=== PATIENT | female | born 1935 | race Caucasian/White ===

== ENCOUNTER 2017-08-17 11:36 | Observation (INO) | payer MEDICARE, OTHER ==
[2017-08-17] MEDS ORDERED: Ondansetron 4 MG/2 ML SDV IVPUSH ONE (11:42)
[2017-08-17] MEDS ORDERED: Sodium Chloride 0.9% 1,000 ML IV ONE (11:42)
[2017-08-17] MEDS ORDERED: GI Cocktail Oral Solution 30 ML PO ONE (13:30)
[2017-08-17] MEDS ORDERED: Pantoprazole 40 MG Vial IVPUSH ONE (13:30)
[2017-08-17] MEDS: Sodium Chloride 0.9% 10 ML Syringe FLUSH PRN (13:42)
--- NOTE | 2017-08-17 14:05 | EDM.PDOC ---
ED HPI GENERAL MEDICAL PROBLEM - General Chief Complaint: Abdominal Pain Stated Complaint: N/V, Abd pain Time Seen by Provider: 08/17/17 11:40 Source of Information: Reports: Patient History Limitations: Reports: No Limitations - History of Present Illness INITIAL COMMENTS - FREE TEXT/NARRATIVE: Patient comes to ER complaining of upper abdominal burning/discomfort ( centrally and bilaterally) as well as dry heaves. Present since later last evening. No fevers/chills. No bowel changes. Had normal BM earlier today. Denies issues with constipation. No recent other changes in health/medications. Pain does not radiate. Pain waxes and wanes in intensity. Does not appear to change with eating/drinking/positional changes per patient. No history of similar pain. Denies history of gastroparesis. Reports poor appetite. Tums made no difference. Abdominal Pain Score (Numeric/FACES): 10 - Related Data Allergies Allergy/AdvReac Type Severity Reaction Status Date / Time doxycycline Allergy Cannot Verified 08/17/17 11:37 Remember ketorolac tromethamine Allergy Chills Verified 08/17/17 11:37 [From Toradol] lisinopril Allergy Cough Verified 08/17/17 11:37 azithromycin [From Zithromax] AdvReac Lightheaded Verified 08/17/17 11:37 ness Past Medical History HEENT History: Reports: Macular Degeneration Cardiovascular History: Reports: Afib, Blood Clots/VTE/DVT, Heart Failure, Hypertension, Pulmonary Hypertension Genitourinary History: Reports: Renal Disease, Other (See Below) Other Genitourinary History: stage 4 kidney failure Musculoskeletal History: Reports: Arthritis Endocrine/Metabolic History: Reports: Diabetes, Type II, Hypothyroidism, IDDM, Multinodular Thyroid Hematologic History: Reports: Anemia, B12 Deficiency Other Oncologic History: Monoclonal Gammopathy - Infectious Disease History Infectious Disease History: Reports: Chicken Pox, Influenza, Measles, Shingles - Past Surgical History GI Surgical History: Reports: Bariatric Procedure, Cholecystectomy, Hernia Repair/Other Endocrine Surgical History: Reports: Other (See Below) Musculoskeletal Surgical History: Reports: Knee Replacement Social & Family History - Family History Family Medical History: Noncontributory - Tobacco Use Smoking Status *Q: Never Smoker - Caffeine Use Caffeine Use: Reports: Tea - Alcohol Use Alcohol Use History: No - Recreational Drug Use Recreational Drug Use: No Drug Use in Last 12 Months: No ED ROS GENERAL - Review of Systems Review Of Systems: See Below Constitutional: Reports: Decreased Appetite. Denies: Fever, Chills, Malaise, Weakness, Fatigue, Night Sweats, Diaphoresis, Weight Loss, Weight Gain HEENT: Reports: No Symptoms Respiratory: Reports: No Symptoms Cardiovascular: Reports: No Symptoms GI/Abdominal: Reports: Abdominal Pain, Decreased Appetite, Nausea, Vomiting. Denies: Black Stool, Bloody Stool, Constipation, Diarrhea, Difficulty Swallowing , Distension, Hematemesis, Hematochezia : Reports: No Symptoms Musculoskeletal: Reports: No Symptoms (no acute changes) Skin: Reports: No Symptoms Neurological: Reports: No Symptoms. Denies: Headache Psychiatric: Reports: No Symptoms Hematologic/Lymphatic: Reports: No Symptoms ED EXAM, GI/ABD - Physical Exam Exam: See Below Exam Limited By: No Limitations General Appearance: Alert, WD/WN, No Apparent Distress (says pain is a "10" out of 10) Eyes: Bilateral: Normal Appearance, EOMI Ears: Normal External Exam, Normal Canal Nose: No: Nasal Deformity, Nasal Swelling, Nasal Drainage Throat/Mouth: Normal Lips, Normal Voice, No Airway Compromise Head: Atraumatic, Normocephalic Neck: Normal Inspection, Supple, Non-Tender, Full Range of Motion. No: Lymphadenopathy (L), Lymphadenopathy (R) Respiratory/Chest: No Respiratory Distress, Lungs Clear, Normal Breath Sounds, No Accessory Muscle Use, Chest Non-Tender Cardiovascular: Normal Peripheral Pulses, No Murmur, Irregularly Irregular GI/Abdominal Exam: Soft, Tender (upper 1/2 abdomen), Abnormal Bowel Sounds ( decreased throughout). No: Guarding, Rigid, Rebound, Hepatomegaly, Splenomegaly (Female) Exam: Deferred Rectal (Female) Exam: Deferred Back Exam: Normal Inspection. No: CVA Tenderness (L), CVA Tenderness (R), Muscle Spasm, Paraspinal Tenderness, Vertebral Tenderness Extremities: Normal Capillary Refill, Pedal Edema (moderate, bilateral), Leg Pain (right knee discomfort, patient says she needs a joint replacement). No: Victoriano's Sign, Increased Warmth Neurological: Alert, Oriented, Normal Cognition, Other (Neuromuscular tone equal /appropriate bilaterally) Psychiatric: Normal Affect, Normal Mood Skin Exam: Warm, Dry, Intact, Normal Color Course - Vital Signs Last Recorded V/S: Last Vital Signs Temp 37.1 C 08/17/17 11:37 Pulse 64 08/17/17 11:37 Resp 18 08/17/17 11:37 BP 165/82 H 08/17/17 11:37 Pulse Ox 99 08/17/17 11:37 - Orders/Labs/Meds Orders: Active Orders 24 hr Category Date Time Status Abdomen 2V AP Flat Upright [CR] Stat Exams 08/17/17 11:42 Ordered UA W/MICROSCOPIC [URIN] Stat Lab 08/17/17 11:41 Ordered Sodium Chloride 0.9% [Normal Saline] 1,000 ml Med 08/17/17 11:42 Active IV .BOLUS Sodium Chloride 0.9% [Saline Flush] Med 08/17/17 11:41 Active 10 ml FLUSH ASDIRECTED PRN Saline Lock Insert [OM.PC] Stat Oth 08/17/17 11:41 Ordered Medication Orders Sodium Chloride (Normal Saline) 1,000 mls @ 250 mls/hr IV .BOLUS ONE Stop: 08/17/17 15:41 Last Admin: 08/17/17 12:44 Dose: 250 mls/hr Sodium Chloride (Saline Flush) 10 ml FLUSH ASDIRECTED PRN PRN Reason: Keep Vein Open Last Admin: 08/17/17 13:42 Dose: 10 ml Labs: Laboratory Tests 08/17/17 08/17/17 08/17/17 Range/Units 11:45 12:28 12:28 WBC 6.5 (4.0-10.2) K/uL RBC 3.54 L (3.77-5.09) M/uL Hgb 11.8 D (11.7-15.5) g/dL Hct 35.8 (34.0-46.0) % MCV 101.1 H D (84.0-98.0) fL MCH 33.3 (28.2-33.3) pg MCHC 33.0 (31.7-36.0) g/dL RDW 13.8 (11.2-14.1) % Plt Count 201 (150-350) K/uL Neut % (Auto) 76.4 (45.0-80.0) % Lymph % (Auto) 12.3 (10.0-50.0) % [place] % (Auto) 10.5 (2.0-14.0) % Eos % (Auto) 0.3 (0.0-5.0) % Baso % (Auto) 0.5 (0.0-2.0) % Neut # (Auto) 4.96 (1.40-7.00) K/uL Lymph # (Auto) 0.80 (0.50-3.50) K/uL [place] # (Auto) 0.68 (0.00-1.00) K/uL Eos # (Auto) 0.02 (0.00-0.50) K/uL Baso # (Auto) 0.03 (0.00-0.20) K/uL PT (9.8-11.7) SEC INR Sodium 139 (136-145) mmol/L Potassium 4.2 (3.5-5.1) mmol/L Chloride 97 L (98-107) mmol/L Carbon Dioxide 33.0 H (21.0-32.0) mmol/L BUN 22 H D (7-18) mg/dL Creatinine 1.86 H (0.51-1.17) mg/dL Est Cr Clr Drug Dosing 19.08 mL/min Estimated GFR (MDRD) 26 mL/min Glucose 106 (74-106) mg/dL Calcium 8.7 (8.5-10.1) mg/dL Total Bilirubin 0.7 (0.2-1.0) mg/dL AST 28 (15-37) U/L ALT 9 L (12-78) U/L Alkaline Phosphatase 194 H (46-116) IU/L Total Protein 7.2 (6.4-8.2) g/dL Albumin 3.4 (3.4-5.0) g/dL Amylase (25-115) U/L Lipase (73-393) U/L Specimen Type Urinblad Urine Color Dark yellow Urine Appearance Clear Urine pH 8.5 (5.0-9.0) Ur Specific [place] 1.015 (1.005-1.030) Urine Protein 100 H (NEGATIVE) mg/dL Urine Glucose (UA) Negative (NEGATIVE) mg/dL Urine Ketones 15 H (NEGATIVE) mg/dL Urine Occult Blood Negative (NEGATIVE) Urine Nitrite Negative (NEGATIVE) Urine Bilirubin Negative (NEGATIVE) Urine Urobilinogen 1.0 (0.2-1.0) E.U./dL Ur Leukocyte Esterase Negative (NEGATIVE) Urine RBC 0-5 /HPF Urine WBC 5-10 H /HPF Ur Epithelial Cells Moderate H /LPF Urine Bacteria Moderate H (NONE TO FEW) /HPF 08/17/17 08/17/17 Range/Units 12:28 12:28 WBC (4.0-10.2) K/uL RBC (3.77-5.09) M/uL Hgb (11.7-15.5) g/dL Hct (34.0-46.0) % MCV (84.0-98.0) fL MCH (28.2-33.3) pg MCHC (31.7-36.0) g/dL RDW (11.2-14.1) % Plt Count (150-350) K/uL Neut % (Auto) (45.0-80.0) % Lymph % (Auto) (10.0-50.0) % [place] % (Auto) (2.0-14.0) % Eos % (Auto) (0.0-5.0) % Baso % (Auto) (0.0-2.0) % Neut # (Auto) (1.40-7.00) K/uL Lymph # (Auto) (0.50-3.50) K/uL [place] # (Auto) (0.00-1.00) K/uL Eos # (Auto) (0.00-0.50) K/uL Baso # (Auto) (0.00-0.20) K/uL PT 17.4 H D (9.8-11.7) SEC INR 1.6 Sodium (136-145) mmol/L Potassium (3.5-5.1) mmol/L Chloride (98-107) mmol/L Carbon Dioxide (21.0-32.0) mmol/L BUN (7-18) mg/dL Creatinine (0.51-1.17) mg/dL Est Cr Clr Drug Dosing mL/min Estimated GFR (MDRD) mL/min Glucose (74-106) mg/dL Calcium (8.5-10.1) mg/dL Total Bilirubin (0.2-1.0) mg/dL AST (15-37) U/L ALT (12-78) U/L Alkaline Phosphatase (46-116) IU/L Total Protein (6.4-8.2) g/dL Albumin (3.4-5.0) g/dL Amylase 46 (25-115) U/L Lipase 52 L (73-393) U/L Specimen Type Urine Color Urine Appearance Urine pH (5.0-9.0) Ur Specific [place]ore (1.005-1.030) Urine Protein (NEGATIVE) mg/dL Urine Glucose (UA) (NEGATIVE) mg/dL Urine Ketones (NEGATIVE) mg/dL Urine Occult Blood (NEGATIVE) Urine Nitrite (NEGATIVE) Urine Bilirubin (NEGATIVE) Urine Urobilinogen (0.2-1.0) E.U./dL Ur Leukocyte Esterase (NEGATIVE) Urine RBC /HPF Urine WBC /HPF Ur Epithelial Cells /LPF Urine Bacteria (NONE TO FEW) /HPF Meds: Medications Generic Name Dose Route Start Last Admin Trade Name Freq PRN Reason Stop Dose Admin Sodium Chloride 1,000 mls @ 250 mls/hr 08/17/17 11:42 08/17/17 12:44 Normal Saline IV 08/17/17 15:41 250 mls/hr .BOLUS ONE Administration Sodium Chloride 10 ml 08/17/17 11:41 08/17/17 13:42 Saline Flush FLUSH 10 ml ASDIRECTED PRN Administration Keep Vein Open Discontinued Medications Generic Name Dose Route Start Last Admin Trade Name Freq PRN Reason Stop Dose Admin Al Hydroxide/Mg Hydroxide 30 ml 08/17/17 13:30 08/17/17 13:42 Gi Cocktail PO 08/17/17 13:31 30 ml ONETIME ONE Administration Ondansetron HCl 4 mg 08/17/17 11:42 08/17/17 12:44 Zofran IVPUSH 08/17/17 11:43 4 mg ONETIME ONE Administration Pantoprazole Sodium 40 mg 08/17/17 13:30 08/17/17 13:42 Protonix Iv IVPUSH 08/17/17 13:31 40 mg ONETIME ONE Administration - Radiology Interpretation Free Text/Narrative:: Abdominal flat/upright overall is unremarkable except for a few small air/fluid levels. - Re-Assessments/Exams Free Text/Narrative Re-Assessment/Exam: Patient's complaint improved with GI cocktail. Zofran ODT and Protonix IV given. IV NS given. Cannot exclude possibility of gastroparesis given diabetes history. Patient denies having gastroparesis in past however. Differential includes viral gastroenteritis. Has had gallbladder removed. Normal WBC. UA had small amount of WBCs but also showed significant number of epithelial cells/ bacteria suggesting dirty urine specimen. She denies having UTI complaints. Small amount of ketones noted in UA. Normal amylase/lipase. BUN 22, Cr 1.86 Last had dialysis yesterday. Normal Na and K. Plan at this time is to admit observation. Will observe for further changes. Will restrict patient to icechips/water for now and continue maintenance fluids once single liter of IV NS is infused. If viral in nature, anticipate patient will be able to be discharged tomorrow or at latest on Sunday once she is again able to take PO food/fluids. Departure - Departure Time of Disposition: 14:28 Disposition: Refer to Observation Condition: Good Clinical Impression: Abdominal pain Qualifiers: Abdominal location: upper abdomen, unspecified Qualified Code(s): R10.10 - Upper abdominal pain, unspecified Vomiting Qualifiers: Vomiting type: unspecified Vomiting Intractability: non-intractable Nausea presence: with nausea Qualified Code(s): R11.2 - Nausea with vomiting, unspecified - Discharge Information Referrals: Nahomi Osman PA [Primary Care Provider] - Forms: ED Department Discharge - Problem List & Annotations (1) Abdominal pain SNOMED Code(s): 27257833 Code(s): R10.9 - UNSPECIFIED ABDOMINAL PAIN Status: Acute Priority: High Current Visit: Yes Onset Date: 08/16/17 Annotation/Comment:: Burning pain , improved with GI cocktail. Suspect possible viral gastroenteritis. Cannot exclude other potential causes however. Qualifiers: Abdominal location: upper abdomen, unspecified Qualified Code(s): R10.10 - Upper abdominal pain, unspecified (2) Vomiting SNOMED Code(s): 456065309 Code(s): R11.10 - VOMITING, UNSPECIFIED Status: Acute Priority: High Current Visit: Yes Annotation/Comment:: Dry heaves as described by patient. No significant episodes observed in ER Qualifiers: Vomiting type: unspecified Vomiting Intractability: non-intractable Nausea presence: with nausea Qualified Code(s): R11.2 - Nausea with vomiting, unspecified - Problem List Review Problem List Initiated/Reviewed/Updated: Yes - My Orders Last 24 Hours: My Active Orders 08/17/17 11:41 UA W/MICROSCOPIC [URIN] Stat Sodium Chloride 0.9% [Saline Flush] 10 ml FLUSH ASDIRECTED PRN Saline Lock Insert [OM.PC] Stat 08/17/17 11:42 Abdomen 2V AP Flat Upright [CR] Stat Sodium Chloride 0.9% [Normal Saline] 1,000 ml IV .BOLUS - Assessment/Plan Admission H&P: Please use this note as an admission H&P Last 24 Hours: My Active Orders 08/17/17 11:41 UA W/MICROSCOPIC [URIN] Stat Sodium Chloride 0.9% [Saline Flush] 10 ml FLUSH ASDIRECTED PRN Saline Lock Insert [OM.PC] Stat 08/17/17 11:42 Abdomen 2V AP Flat Upright [CR] Stat Sodium Chloride 0.9% [Normal Saline] 1,000 ml IV .BOLUS Assessment:: as above Plan: as above
[2017-08-17] MEDS ORDERED: Morphine 2 MG/ML Syringe IVPUSH ONE (14:08)
[2017-08-17] MEDS ORDERED: Bisacodyl 10 MG Supp RECTAL PRN (16:13)
[2017-08-17] MEDS ORDERED: Acetaminophen 325 MG Tab PO PRN (16:13)
[2017-08-17] MEDS ORDERED: Acetaminophen/HYDROcodone 325-5 MG Tab PO PRN (16:17)
[2017-08-17] MEDS ORDERED: traMADol 50 MG Tab PO PRN (16:17)
[2017-08-17] MEDS ORDERED: Warfarin 5 MG Tab PO ONE (16:19)
[2017-08-17] MEDS ORDERED: Morphine 2 MG/ML Syringe IVPUSH PRN (16:29)
[2017-08-17] MEDS ORDERED: Sodium Chloride 0.9% 1,000 ML IV SCH (16:30)
[2017-08-17] MEDS: Bumetanide 1 MG Tab PO SCH (17:19)
[2017-08-17] MEDS: Calcium Carbonate 500 MG Tab.Chew PO PRN (20:27)
[2017-08-17] MEDS: Carbidopa/Levodopa 25-100 MG Tab PO SCH (20:27)
[2017-08-17] MEDS: Ondansetron 4 MG/2 ML SDV IVPUSH PRN (20:30)
[2017-08-18] MEDS ORDERED: Levothyroxine 25 MCG Tab PO SCH (07:30)
[2017-08-18] MEDS ORDERED: Levothyroxine 100 MCG Tab PO SCH (07:30)
[2017-08-18] MEDS: Bumetanide 1 MG Tab PO SCH ×2 (08:31→12:05)
[2017-08-18] MEDS: Sodium Chloride 0.9% 10 ML Syringe FLUSH PRN (08:33)
[2017-08-18] MEDS: Pantoprazole 40 MG Vial IVPUSH SCH (08:33)
[2017-08-18] MEDS: Warfarin 2.5 MG Tab PO SCH (08:33)
[2017-08-18] MEDS: Ondansetron 4 MG/2 ML SDV IVPUSH PRN (12:09)
[2017-08-18] MEDS: Calcium Carbonate 500 MG Tab.Chew PO PRN (12:09)
[2017-08-18] MEDS ORDERED: Insulin Isophane NPH, Human 100 Units/ML 3 ML Pen SUBCUT ONE (20:00)
[2017-08-18] MEDS: Carbidopa/Levodopa 25-100 MG Tab PO SCH (20:40)
--- NOTE | 2017-08-18 21:05 | PCM.PN ---
- General Info Date of Service: 08/18/17 Functional Status: Reports: Pain Controlled, Tolerating Diet - Review of Systems General: Reports: No Symptoms HEENT: Reports: No Symptoms Pulmonary: Reports: No Symptoms Cardiovascular: Reports: No Symptoms Gastrointestinal: Reports: No Symptoms Genitourinary: Reports: No Symptoms Musculoskeletal: Reports: No Symptoms Skin: Reports: No Symptoms Neurological: Reports: No Symptoms Psychiatric: Reports: No Symptoms - Patient Data Vitals - Most Recent: Last Vital Signs Temp 98.7 F 08/18/17 16:00 Pulse 59 L 08/18/17 16:00 Resp 16 08/18/17 16:00 BP 137/63 08/18/17 16:00 Pulse Ox 94 L 08/18/17 16:00 Weight - Most Recent: 145 lb 4.8 oz I&O - Last 24 Hours: Intake & Output 08/18/17 08/18/17 08/18/17 06:59 14:59 22:59 Intake Total 600 1120 1440 Output Total 400 Balance 851 028 0839 Lab Results Last 24 Hours: Laboratory Results - last 24 hr 08/18/17 08/18/17 08/18/17 Range/Units 06:34 06:35 17:03 WBC 6.5 (4.0-10.2) K/uL RBC 3.08 L (3.77-5.09) M/uL Hgb 10.3 L D (11.7-15.5) g/dL Hct 31.8 L (34.0-46.0) % MCV 103.2 H (84.0-98.0) fL MCH 33.4 H (28.2-33.3) pg MCHC 32.4 (31.7-36.0) g/dL RDW 13.7 (11.2-14.1) % Plt Count 204 (150-350) K/uL Neut % (Auto) 74.5 (45.0-80.0) % Lymph % (Auto) 14.6 (10.0-50.0) % [place] % (Auto) 9.8 (2.0-14.0) % Eos % (Auto) 0.5 (0.0-5.0) % Baso % (Auto) 0.6 (0.0-2.0) % Neut # (Auto) 4.86 (1.40-7.00) K/uL Lymph # (Auto) 0.95 (0.50-3.50) K/uL [place] # (Auto) 0.64 (0.00-1.00) K/uL Eos # (Auto) 0.03 (0.00-0.50) K/uL Baso # (Auto) 0.04 (0.00-0.20) K/uL Sodium 139 (136-145) mmol/L Potassium 4.3 (3.5-5.1) mmol/L Chloride 101 (98-107) mmol/L Carbon Dioxide 30.0 (21.0-32.0) mmol/L BUN 26 H (7-18) mg/dL Creatinine 2.17 H (0.51-1.17) mg/dL Est Cr Clr Drug Dosing 16.35 mL/min Estimated GFR (MDRD) 22 mL/min Glucose 100 (74-106) mg/dL POC Glucose 216 H (65-110) mg/dl Calcium 8.2 L (8.5-10.1) mg/dL Total Bilirubin 0.5 (0.2-1.0) mg/dL AST 22 (15-37) U/L ALT 6 L (12-78) U/L Alkaline Phosphatase 157 H (46-116) IU/L Total Protein 5.8 L (6.4-8.2) g/dL Albumin 2.6 L (3.4-5.0) g/dL Med Orders - Current: Current Medications Acetaminophen (Tylenol) 650 mg PO Q4H PRN PRN Reason: analgesia/fever Hydrocodone Bitart/Acetaminophen ([place] 325-5 Mg) 1 tab PO Q12H PRN PRN Reason: Pain Bisacodyl (Dulcolax) 10 mg RECTAL DAILY PRN PRN Reason: Constipation Calcium Carbonate/Glycine (Tums) 500 mg PO Q4H PRN PRN Reason: Dyspepsia Last Admin: 08/18/17 12:09 Dose: 500 mg Carbidopa/Levodopa (Sinemet 25-100 Mg) 3 tab PO BEDTIME CADY Last Admin: 08/18/17 20:40 Dose: 3 tab Morphine Sulfate (Morphine) 2 mg IVPUSH Q4H PRN PRN Reason: Pain (severe 7-10) Last Admin: 06/15/18 20:30 Dose: 2 mg Ondansetron HCl (Zofran) 4 mg IVPUSH Q6H PRN PRN Reason: Nausea/Vomiting Last Admin: 08/18/17 12:09 Dose: 4 mg Pantoprazole Sodium (Protonix Iv) 40 mg IVPUSH DAILY [facility] Last Admin: 08/18/17 08:33 Dose: 40 mg Pramipexole Dihydrochloride (Mirapex) 3 mg PO BEDTIME [facility] Last Admin: 08/18/17 20:40 Dose: 3 mg Sodium Chloride (Saline Flush) 10 ml FLUSH ASDIRECTED PRN PRN Reason: Keep Vein Open Last Admin: 08/18/17 08:33 Dose: 10 ml Sodium Chloride (Saline Flush) 10 ml FLUSH Q12HR [facility] Tramadol HCl (Ultram) 50 mg PO Q6H PRN PRN Reason: Pain Warfarin Sodium (Coumadin) 1.25 mg PO MO@08 CADY Warfarin Sodium (Coumadin) 2.5 mg PO SUTUWETHFRSA@08 [facility] Last Admin: 08/18/17 08:33 Dose: 2.5 mg Discontinued Medications Al Hydroxide/Mg Hydroxide (Gi Cocktail) 30 ml PO ONETIME ONE Stop: 08/17/17 13:31 Last Admin: 08/17/17 13:42 Dose: 30 ml Bumetanide (Bumex) 1 mg PO TID [facility] Last Admin: 08/18/17 12:05 Dose: 1 mg Sodium Chloride (Normal Saline) 1,000 mls @ 250 mls/hr IV .BOLUS ONE Stop: 08/17/17 15:41 Last Admin: 08/17/17 12:44 Dose: 250 mls/hr Sodium Chloride (Normal Saline) 1,000 mls @ 50 mls/hr IV ASDIRECTED [facility] Stop: 08/18/17 13:30 Last Admin: 08/17/17 17:12 Dose: 50 mls/hr Insulin Human NPH (Humulin N) 8 unit SUBCUT ONETIME ONE Stop: 08/18/17 20:01 Last Admin: 08/18/17 20:40 Dose: 8 units Levothyroxine Sodium (Synthroid) 100 mcg PO ACBREAKFAST [facility] Last Admin: 08/18/17 08:32 Dose: 100 mcg Levothyroxine Sodium (Levothyroxine) 25 mcg PO ACBREAKFAST [facility] Last Admin: 08/18/17 08:31 Dose: 25 mcg Morphine Sulfate (Morphine) 2 mg IVPUSH ONETIME ONE Stop: 08/17/17 14:09 Last Admin: 08/17/17 15:09 Dose: 2 mg Ondansetron HCl (Zofran) 4 mg IVPUSH ONETIME ONE Stop: 08/17/17 11:43 Last Admin: 08/17/17 12:44 Dose: 4 mg Pantoprazole Sodium (Protonix Iv) 40 mg IVPUSH ONETIME ONE Stop: 08/17/17 13:31 Last Admin: 08/17/17 13:42 Dose: 40 mg Warfarin Sodium (Coumadin) 5 mg PO ONETIME ONE Stop: 08/17/17 16:20 Last Admin: 08/17/17 17:18 Dose: 5 mg - Exam Quality Assessment: DVT Prophylaxis General: Alert, Cooperative, No Acute Distress HEENT: Mucous Membr. Moist/[place], Other (decreased visual acuity unchanged) Neck: Trachea Midline, No JVD Lungs: Clear to Auscultation, Normal Respiratory Effort Cardiovascular: Irregular Rhythm GI/Abdominal Exam: Normal Bowel Sounds, Soft, Non-Tender, No Distention (Female) Exam: Deferred Back Exam: Other (kyphosis) Extremities: No Pedal Edema, Other (dialysis fistulas bilateral upper extremities) Skin: Warm, Dry, Intact Neurological: No New Focal Deficit Psy/Mental Status: Alert, Normal Affect, Normal Mood - Problem List & Annotations (1) Dialysis patient SNOMED Code(s): 584244805 Code(s): Z99.2 - DEPENDENCE ON RENAL DIALYSIS Status: Acute Priority: Medium Current Visit: Yes (2) Abdominal pain SNOMED Code(s): 81987820 Code(s): R10.9 - UNSPECIFIED ABDOMINAL PAIN Status: Acute Priority: High Current Visit: Yes Onset Date: 08/16/17 Qualifiers: Abdominal location: upper abdomen, unspecified Qualified Code(s): R10.10 - Upper abdominal pain, unspecified Annotation/Comment:: Burning pain, improved with GI cocktail. Suspect possible viral gastroenteritis. Cannot exclude other potential causes however. (3) Subtherapeutic international normalized ratio (INR) SNOMED Code(s): 531251779, 637913637 Code(s): R79.1 - ABNORMAL COAGULATION PROFILE Status: Acute Current Visit : Yes (4) Anemia SNOMED Code(s): 335262438 Code(s): D64.9 - ANEMIA, UNSPECIFIED Status: Chronic Current Visit: No (5) COPD, Mild chronic obstructive pulmonary disease SNOMED Code(s): 144565279 Code(s): J44.9 - CHRONIC OBSTRUCTIVE PULMONARY DISEASE, UNSPECIFIED Status : Chronic Current Visit: No (6) Comfort measures only status SNOMED Code(s): 09414426878258 Code(s): Z51.5 - ENCOUNTER FOR PALLIATIVE CARE Status: Chronic Priority: Medium Current Visit: No (7) Diabetes mellitus type 2 SNOMED Code(s): 30439323 Code(s): E11.9 - TYPE 2 DIABETES MELLITUS WITHOUT COMPLICATIONS Status: Chronic Current Visit: No Annotation/Comment:: Novalin N 6 units BID, accu checks BID. Hold glyberide and Metformin. Lactic acid level in am. (8) HTN (hypertension) SNOMED Code(s): 92532245 Code(s): I10 - ESSENTIAL (PRIMARY) HYPERTENSION Status: Chronic Priority : Medium Current Visit: No Qualifiers: Hypertension type: essential hypertension Qualified Code(s): I10 - Essential (primary) hypertension (9) Renal failure, chronic SNOMED Code(s): 81999811, 621560025 Code(s): N18.9 - CHRONIC KIDNEY DISEASE, UNSPECIFIED Status: Chronic Priority: High Current Visit: No Qualifiers: Chronic kidney disease stage: stage 4 (severe) Qualified Code(s): N18.4 - Chronic kidney disease, stage 4 (severe) (10) Vitamin B 12 deficiency SNOMED Code(s): 503891136 Code(s): E53.8 - DEFICIENCY OF OTHER SPECIFIED B GROUP VITAMINS Status: Chronic Current Visit: No (11) Hypercoagulability state SNOMED Code(s): 95396836 Code(s): D68.59 - OTHER PRIMARY THROMBOPHILIA Status: Inactive Current Visit: No Onset Date: 12/30/13 Annotation/Comment:: INR greater than 7. Coumadin held. Repeat labs in am. (12) Gastritis, acute SNOMED Code(s): 45816778 Code(s): K29.00 - ACUTE GASTRITIS WITHOUT BLEEDING Status: Acute Priority : High Current Visit: Yes Qualifiers: Gastritis type: superficial Gastritis bleeding: without bleeding Qualified Code(s): K29.00 - Acute gastritis without bleeding - Problem List Review Problem List Initiated/Reviewed/Updated: Yes - My Orders Last 24 Hours: My Active Orders 08/19/17 05:11 AMYLASE [CHEM] Routine CBC WITH AUTO DIFF [HEME] Routine CMP [COMPREHENSIVE METABOLIC PN,CMP] [CHEM] Routine CRP [C-REACTIVE PROTEIN] [CHEM] Routine INR,PT,PROTHROMBIN TIME [COAG] Routine LIPASE [CHEM] Routine 08/19/17 08:00 Sodium Chloride 0.9% [Saline Flush] 10 ml FLUSH Q12HR 08/19/17 Breakfast [place] [employer] Diet [DIET] - Plan Plan:: 08/18/17 Marjan Blake MD Feels much better today. No abdomenal pain. Tolerating oral intake. Recheck labs in AM. Discussed insulin and diabetes mellitus.
[2017-08-18] MEDS ORDERED: Saliva Substitute Oral Spray 120 ML Bottle MUCMEM PRN (22:35)
[2017-08-19] MEDS ORDERED: Temazepam 15 MG Cap PO PRN (02:10)
[2017-08-19] MEDS: Pantoprazole 40 MG Vial IVPUSH SCH (07:39)
[2017-08-19] MEDS: Warfarin 2.5 MG Tab PO SCH (07:39)
[2017-08-19] MEDS ORDERED: Sodium Chloride 0.9% 10 ML Syringe FLUSH SCH (08:00)
[2017-08-19 12:43] VITALS: BP 120/47
--- NOTE | 2017-08-19 16:22 | PCM.PN ---
- General Info Date of Service: 08/19/17 Functional Status: Reports: Pain Controlled, Tolerating Diet, Ambulating - Review of Systems General: Reports: Weakness HEENT: Reports: Other (decreased visual acuity but unchanged) Pulmonary: Reports: No Symptoms Cardiovascular: Reports: No Symptoms Gastrointestinal: Reports: No Symptoms Genitourinary: Reports: No Symptoms Musculoskeletal: Reports: No Symptoms Skin: Reports: Bruising Neurological: Reports: Weakness Psychiatric: Reports: No Symptoms - Patient Data Vitals - Most Recent: Last Vital Signs Temp 98.6 F 08/19/17 12:00 Pulse 62 08/19/17 12:00 Resp 16 08/19/17 12:00 BP 120/47 L 08/19/17 12:00 Pulse Ox 95 08/19/17 12:00 Weight - Most Recent: 145 lb 4.8 oz I&O - Last 24 Hours: Intake & Output 08/19/17 08/19/17 08/19/17 06:59 14:59 22:59 Intake Total 90 1360 Output Total 100 Balance 90 1260 Lab Results Last 24 Hours: Laboratory Results - last 24 hr 08/18/17 08/18/17 08/19/17 Range/Units 17:03 19:51 06:46 WBC 5.1 (4.0-10.2) K/uL RBC 3.12 L (3.77-5.09) M/uL Hgb 10.3 L (11.7-15.5) g/dL Hct 31.7 L (34.0-46.0) % MCV 101.6 H (84.0-98.0) fL MCH 33.0 (28.2-33.3) pg MCHC 32.5 (31.7-36.0) g/dL RDW 13.8 (11.2-14.1) % Plt Count 188 (150-350) K/uL Neut % (Auto) 67.1 (45.0-80.0) % Lymph % (Auto) 18.0 (10.0-50.0) % [place] % (Auto) 13.3 (2.0-14.0) % Eos % (Auto) 1.2 (0.0-5.0) % Baso % (Auto) 0.4 (0.0-2.0) % Neut # (Auto) 3.43 (1.40-7.00) K/uL Lymph # (Auto) 0.92 (0.50-3.50) K/uL [place] # (Auto) 0.68 (0.00-1.00) K/uL Eos # (Auto) 0.06 (0.00-0.50) K/uL Baso # (Auto) 0.02 (0.00-0.20) K/uL PT (9.8-11.7) SEC INR Sodium (136-145) mmol/L Potassium (3.5-5.1) mmol/L Chloride (98-107) mmol/L Carbon Dioxide (21.0-32.0) mmol/L BUN (7-18) mg/dL Creatinine (0.51-1.17) mg/dL Est Cr Clr Drug Dosing mL/min Estimated GFR (MDRD) mL/min Glucose (74-106) mg/dL POC Glucose 216 H 254 H* (65-110) mg/dl Calcium (8.5-10.1) mg/dL Total Bilirubin (0.2-1.0) mg/dL AST (15-37) U/L ALT (12-78) U/L Alkaline Phosphatase (46-116) IU/L C-Reactive Protein (<=0.9) mg/dL Total Protein (6.4-8.2) g/dL Albumin (3.4-5.0) g/dL Amylase (25-115) U/L Lipase (73-393) U/L 08/19/17 08/19/17 08/19/17 Range/Units 06:46 06:46 07:30 WBC (4.0-10.2) K/uL RBC (3.77-5.09) M/uL Hgb (11.7-15.5) g/dL Hct (34.0-46.0) % MCV (84.0-98.0) fL MCH (28.2-33.3) pg MCHC (31.7-36.0) g/dL RDW (11.2-14.1) % Plt Count (150-350) K/uL Neut % (Auto) (45.0-80.0) % Lymph % (Auto) (10.0-50.0) % [place] % (Auto) (2.0-14.0) % Eos % (Auto) (0.0-5.0) % Baso % (Auto) (0.0-2.0) % Neut # (Auto) (1.40-7.00) K/uL Lymph # (Auto) (0.50-3.50) K/uL [place] # (Auto) (0.00-1.00) K/uL Eos # (Auto) (0.00-0.50) K/uL Baso # (Auto) (0.00-0.20) K/uL PT 24.8 H D (9.8-11.7) SEC INR 2.3 Sodium 138 (136-145) mmol/L Potassium 3.7 (3.5-5.1) mmol/L Chloride 101 (98-107) mmol/L Carbon Dioxide 29.5 (21.0-32.0) mmol/L BUN 34 H (7-18) mg/dL Creatinine 2.65 H (0.51-1.17) mg/dL Est Cr Clr Drug Dosing 13.39 mL/min Estimated GFR (MDRD) 17 mL/min Glucose 214 H (74-106) mg/dL POC Glucose 195 H (65-110) mg/dl Calcium 8.0 L (8.5-10.1) mg/dL Total Bilirubin 0.4 (0.2-1.0) mg/dL AST 20 (15-37) U/L ALT 5 L (12-78) U/L Alkaline Phosphatase 152 H (46-116) IU/L C-Reactive Protein 1.8 H (<=0.9) mg/dL Total Protein 5.7 L (6.4-8.2) g/dL Albumin 2.7 L (3.4-5.0) g/dL Amylase 31 (25-115) U/L Lipase 85 (73-393) U/L Med Orders - Current: Current Medications Acetaminophen (Tylenol) 650 mg PO Q4H PRN PRN Reason: analgesia/fever Hydrocodone Bitart/Acetaminophen ([place] 325-5 Mg) 1 tab PO Q12H PRN PRN Reason: Pain Bisacodyl (Dulcolax) 10 mg RECTAL DAILY PRN PRN Reason: Constipation Calcium Carbonate/Glycine (Tums) 500 mg PO Q4H PRN PRN Reason: Dyspepsia Last Admin: 08/18/17 12:09 Dose: 500 mg Carbidopa/Levodopa (Sinemet 25-100 Mg) 3 tab PO BEDTIME [facility] Last Admin: 08/18/17 20:40 Dose: 3 tab Morphine Sulfate (Morphine) 2 mg IVPUSH Q4H PRN PRN Reason: Pain (severe 7-10) Last Admin: 08/17/17 20:30 Dose: 2 mg Ondansetron HCl (Zofran) 4 mg IVPUSH Q6H PRN PRN Reason: Nausea/Vomiting Last Admin: 08/18/17 12:09 Dose: 4 mg Pantoprazole Sodium (Protonix Iv) 40 mg IVPUSH DAILY [facility] Last Admin: 08/19/17 07:39 Dose: 40 mg Pramipexole Dihydrochloride (Mirapex) 3 mg PO BEDTIME [facility] Last Admin: 08/18/17 20:40 Dose: 3 mg Saliva Substitute (Jluis-Stir Oral [place]) 0 ml MUCMEM ASDIRECTED PRN PRN Reason: Dry Mouth Last Admin: 08/18/17 23:31 Dose: 1 spray Sodium Chloride (Saline Flush) 10 ml FLUSH ASDIRECTED PRN PRN Reason: Keep Vein Open Last Admin: 08/18/17 08:33 Dose: 10 ml Sodium Chloride (Saline Flush) 10 ml FLUSH Q12HR [facility] Last Admin: 08/19/17 07:39 Dose: 10 ml Temazepam (Restoril) 15 mg PO BEDTIME PRN PRN Reason: Insomnia Last Admin: 08/19/17 02:37 Dose: 15 mg Tramadol HCl (Ultram) 50 mg PO Q6H PRN PRN Reason: Pain Warfarin Sodium (Coumadin) 1.25 mg PO MO@08 [facility]Y Warfarin Sodium (Coumadin) 2.5 mg PO SUTUWETHFRSA@08 [facility] Last Admin: 08/19/17 07:39 Dose: 2.5 mg Discontinued Medications Al Hydroxide/Mg Hydroxide (Gi Cocktail) 30 ml PO ONETIME ONE Stop: 08/17/17 13:31 Last Admin: 08/17/17 13:42 Dose: 30 ml Bumetanide (Bumex) 1 mg PO TID [facility] Last Admin: 08/18/17 12:05 Dose: 1 mg Sodium Chloride (Normal Saline) 1,000 mls @ 250 mls/hr IV .BOLUS ONE Stop: 08/17/17 15:41 Last Admin: 08/17/17 12:44 Dose: 250 mls/hr Sodium Chloride (Normal Saline) 1,000 mls @ 50 mls/hr IV ASDIRECTED CADY Stop: 08/18/17 13:30 Last Admin: 08/17/17 17:12 Dose: 50 mls/hr Insulin Human NPH (Humulin N) 8 unit SUBCUT ONETIME ONE Stop: 08/18/17 20:01 Last Admin: 08/18/17 20:40 Dose: 8 units Levothyroxine Sodium (Synthroid) 100 mcg PO ACBREAKFAST [facility]Y Last Admin: 08/18/17 08:32 Dose: 100 mcg Levothyroxine Sodium (Levothyroxine) 25 mcg PO ACBREAKFAST [facility]Y Last Admin: 08/18/17 08:31 Dose: 25 mcg Morphine Sulfate (Morphine) 2 mg IVPUSH ONETIME ONE Stop: 08/17/17 14:09 Last Admin: 08/17/17 15:09 Dose: 2 mg Ondansetron HCl (Zofran) 4 mg IVPUSH ONETIME ONE Stop: 08/17/17 11:43 Last Admin: 08/17/17 12:44 Dose: 4 mg Pantoprazole Sodium (Protonix Iv) 40 mg IVPUSH ONETIME ONE Stop: 08/17/17 13:31 Last Admin: 08/17/17 13:42 Dose: 40 mg Warfarin Sodium (Coumadin) 5 mg PO ONETIME ONE Stop: 08/17/17 16:20 Last Admin: 08/17/17 17:18 Dose: 5 mg - Exam Quality Assessment: DVT Prophylaxis (on coumadin) General: Alert, Cooperative, No Acute Distress HEENT: Mucous Membr. Moist/[place] Neck: Trachea Midline, No JVD Lungs: Clear to Auscultation, Normal Respiratory Effort Cardiovascular: Irregular Rhythm GI/Abdominal Exam: Normal Bowel Sounds, Soft, Non-Tender, No Distention (Female) Exam: Deferred Back Exam: Other (kyphosis) Extremities: Normal Inspection, Non-Tender, Other (hemodialysis fistulas bilateral upper extremities) Skin: Warm, Dry, Intact, Ecchymosis Neurological: No New Focal Deficit, Other (generalized weakness) Psy/Mental Status: Alert, Normal Affect, Normal Mood - Problem List & Annotations (1) Dialysis patient SNOMED Code(s): 602895652 Code(s): Z99.2 - DEPENDENCE ON RENAL DIALYSIS Status: Acute Priority: Medium Current Visit: Yes (2) Abdominal pain SNOMED Code(s): 94591281 Code(s): R10.9 - UNSPECIFIED ABDOMINAL PAIN Status: Acute Priority: High Current Visit: Yes Onset Date: 08/16/17 Qualifiers: Abdominal location: upper abdomen, unspecified Qualified Code(s): R10.10 - Upper abdominal pain, unspecified Annotation/Comment:: Burning pain, improved with GI cocktail. Suspect possible viral gastroenteritis. Cannot exclude other potential causes however. (3) Subtherapeutic international normalized ratio (INR) SNOMED Code(s): 453452598, 338780571 Code(s): R79.1 - ABNORMAL COAGULATION PROFILE Status: Acute Current Visit : Yes (4) Anemia SNOMED Code(s): 088771784 Code(s): D64.9 - ANEMIA, UNSPECIFIED Status: Chronic Current Visit: No (5) COPD, Mild chronic obstructive pulmonary disease SNOMED Code(s): 327572242 Code(s): J44.9 - CHRONIC OBSTRUCTIVE PULMONARY DISEASE, UNSPECIFIED Status : Chronic Current Visit: No (6) Comfort measures only status SNOMED Code(s): 12991918214698 Code(s): Z51.5 - ENCOUNTER FOR PALLIATIVE CARE Status: Chronic Priority: Medium Current Visit: No (7) Diabetes mellitus type 2 SNOMED Code(s): 76859417 Code(s): E11.9 - TYPE 2 DIABETES MELLITUS WITHOUT COMPLICATIONS Status: Chronic Current Visit: No Annotation/Comment:: Novalin N 6 units BID, accu checks BID. Hold glyberide and Metformin. Lactic acid level in am. (8) HTN (hypertension) SNOMED Code(s): 21692935 Code(s): I10 - ESSENTIAL (PRIMARY) HYPERTENSION Status: Chronic Priority : Medium Current Visit: No Qualifiers: Hypertension type: essential hypertension Qualified Code(s): I10 - Essential (primary) hypertension (9) Renal failure, chronic SNOMED Code(s): 95915464, 978984670 Code(s): N18.9 - CHRONIC KIDNEY DISEASE, UNSPECIFIED Status: Chronic Priority: High Current Visit: No Qualifiers: Chronic kidney disease stage: stage 4 (severe) Qualified Code(s): N18.4 - Chronic kidney disease, stage 4 (severe) (10) Vitamin B 12 deficiency SNOMED Code(s): 993209348 Code(s): E53.8 - DEFICIENCY OF OTHER SPECIFIED B GROUP VITAMINS Status: Chronic Current Visit: No (11) Gastritis, acute SNOMED Code(s): 31499962 Code(s): K29.00 - ACUTE GASTRITIS WITHOUT BLEEDING Status: Acute Priority : High Current Visit: Yes Qualifiers: Gastritis type: superficial Gastritis bleeding: without bleeding Qualified Code(s): K29.00 - Acute gastritis without bleeding (12) Weakness generalized SNOMED Code(s): 84701995 Code(s): R53.1 - WEAKNESS Status: Acute Priority: High Current Visit: Yes - Problem List Review Problem List Initiated/Reviewed/Updated: Yes - My Orders Last 24 Hours: My Active Orders 08/18/17 20:00 Blood Glucose Check, Bedside [RC] ONETIME 08/18/17 22:35 Carboxymethylcellulose/Lytes [Jluis-Stir Oral [place]] 0 ml MUCMEM ASDIRECTED PRN 08/19/17 02:10 Temazepam [Restoril] 15 mg PO BEDTIME PRN 08/19/17 08:00 Sodium Chloride 0.9% [Saline Flush] 10 ml FLUSH Q12HR 08/19/17 15:59 Discontinue Saline Lock [Peripheral IV Discontinue] [OM.PC] Routine 08/19/17 16:11 Ready for Discharge [RC] PER UNIT ROUTINE 08/19/17 Breakfast [place] [employer] Diet [DIET] - Plan Plan:: 08/18/17 Marjan Blake MD Feels much better today. No abdomenal pain. Tolerating oral intake. Recheck labs in AM. Discussed insulin and diabetes mellitus. 08/19/17 Marjan Blake MD Feels good. No abdomenal pain. Labs stable. Generalized weakness and difficulty arising from chair and off toilet. This has been an issue for the past couple of weeks. Discussed outpatient PT-OT in [place]. Also discussed protein supplements- she likes the wilson better. Home today.
--- NOTE | 2017-08-19 16:23 | PCM.DCSUM1 ---
Discharge Summary - Hospital Course Diagnosis: Stroke: No - Discharge Data Discharge Date: 08/19/17 Discharge Disposition: Home, Self-Care 01 Condition: Good - Discharge Diagnosis/Problem(s) (1) Dialysis patient SNOMED Code(s): 439313812 ICD Code: Z99.2 - DEPENDENCE ON RENAL DIALYSIS Status: Acute Priority: Medium Current Visit: Yes (2) Abdominal pain SNOMED Code(s): 34830471 ICD Code: R10.9 - UNSPECIFIED ABDOMINAL PAIN Status: Acute Priority: High Current Visit: Yes Onset Date: 08/16/17 Problem Details: Burning pain , improved with GI cocktail. Suspect possible viral gastroenteritis. Cannot exclude other potential causes however. Qualifiers: Abdominal location: upper abdomen, unspecified Qualified Code(s): R10.10 - Upper abdominal pain, unspecified (3) Subtherapeutic international normalized ratio (INR) SNOMED Code(s): 133963688, 823089724 ICD Code: R79.1 - ABNORMAL COAGULATION PROFILE Status: Acute Current Visit: Yes (4) Anemia SNOMED Code(s): 242226266 ICD Code: D64.9 - ANEMIA, UNSPECIFIED Status: Chronic Current Visit: No (5) COPD, Mild chronic obstructive pulmonary disease SNOMED Code(s): 733628568 ICD Code: J44.9 - CHRONIC OBSTRUCTIVE PULMONARY DISEASE, UNSPECIFIED Status : Chronic Current Visit: No (6) Comfort measures only status SNOMED Code(s): 67817010076068 ICD Code: Z51.5 - ENCOUNTER FOR PALLIATIVE CARE Status: Chronic Priority : Medium Current Visit: No (7) Diabetes mellitus type 2 SNOMED Code(s): 79196995 ICD Code: E11.9 - TYPE 2 DIABETES MELLITUS WITHOUT COMPLICATIONS Status: Chronic Current Visit: No Problem Details: Novalin N 6 units BID, accu checks BID. Hold glyberide and Metformin. Lactic acid level in am. (8) HTN (hypertension) SNOMED Code(s): 09433895 ICD Code: I10 - ESSENTIAL (PRIMARY) HYPERTENSION Status: Chronic Priority : Medium Current Visit: No Qualifiers: Hypertension type: essential hypertension Qualified Code(s): I10 - Essential (primary) hypertension (9) Renal failure, chronic SNOMED Code(s): 93351610, 191202592 ICD Code: N18.9 - CHRONIC KIDNEY DISEASE, UNSPECIFIED Status: Chronic Priority: High Current Visit: No Qualifiers: Chronic kidney disease stage: stage 4 (severe) Qualified Code(s): N18.4 - Chronic kidney disease, stage 4 (severe) (10) Vitamin B 12 deficiency SNOMED Code(s): 804349101 ICD Code: E53.8 - DEFICIENCY OF OTHER SPECIFIED B GROUP VITAMINS Status: Chronic Current Visit: No (11) Gastritis, acute SNOMED Code(s): 29677057 ICD Code: K29.00 - ACUTE GASTRITIS WITHOUT BLEEDING Status: Acute Priority: High Current Visit: Yes Qualifiers: Gastritis type: superficial Gastritis bleeding: without bleeding Qualified Code(s): K29.00 - Acute gastritis without bleeding (12) Weakness generalized SNOMED Code(s): 14985904 ICD Code: R53.1 - WEAKNESS Status: Acute Priority: High Current Visit: Yes - Patient Instructions Diet: Diabetic Diet (with protein supplements. Talk to your kidney doctor regarding recommendations.) Activity: As Tolerated Driving: Do Not Drive Showering/Bathing: May Shower Notify Provider of: Increased Pain, Nausea and/or Vomiting Other/Special Instructions: Follow up with your scheduled dialysis. Add protein supplement to oral intake. Outpatient PT-OT in [place] will call you with appointment. Follow up with [facility] and [facility] as needed. - Discharge Plan Home Medications: Home Meds Bumetanide 1 mg PO TID 08/17/17 [History] Calcium Carbonate [Tums Extra Strength] 750 mg PO QID PRN 08/17/17 [History] Carbidopa/Levodopa [Carbidopa-Levodopa 25-100 Tab] 3 tab PO BEDTIME 08/17/17 [ History] Hydrocodone/Acetaminophen [Hydrocodon-Acetaminophen 5-325] 1 each PO Q12H PRN [History] Insulin Isophane NPH, Human [NovoLIN N] 0 units SUBCUT BEDTIME 08/17/17 [History ] Levothyroxine 125 mcg PO ACBREAKFAST 08/17/17 [History] Multivitamin [Daily Multiple Vitamin] 1 tab PO BEDTIME 08/17/17 [History] Pramipexole [Mirapex] 3 mg PO DAILY 08/17/17 [History] Warfarin Sodium 0.5 tab PO MO@08 08/17/17 [History] Warfarin Sodium 2.5 mg PO SUTUWETHFRSA@08 08/17/17 [History] traMADol HCl [Tramadol HCl] 1 tab PO Q6H PRN 08/17/17 [History] Carboxymethylcellulose/Lytes [Jluis-Stir Oral [place]] 0 ml MUCMEM ASDIRECTED PRN bottle 08/19/17 [Rx] Patient Handouts: Ondansetron injection, Pantoprazole injection, Abdominal Pain , Adult, [id number], Morphine injection solution Forms: ED Department Discharge Referrals: Nahomi Osman PA [Primary Care Provider] - - Discharge Summary/Plan Comment DC Time >30 min.: No - Patient Data Vitals - Most Recent: Last Vital Signs Temp 98.6 F 08/19/17 12:00 Pulse 62 08/19/17 12:00 Resp 16 08/19/17 12:00 BP 120/47 L 08/19/17 12:00 Pulse Ox 95 08/19/17 12:00 Weight - Most Recent: 145 lb 4.8 oz I&O - Last 24 hours: Intake & Output 08/19/17 08/19/17 08/19/17 06:59 14:59 22:59 Intake Total 90 1360 Output Total 100 Balance 90 1260 Lab Results - Last 24 hrs: Laboratory Results - last 24 hr 08/18/17 08/18/17 08/19/17 Range/Units 17:03 19:51 06:46 WBC 5.1 (4.0-10.2) K/uL RBC 3.12 L (3.77-5.09) M/uL Hgb 10.3 L (11.7-15.5) g/dL Hct 31.7 L (34.0-46.0) % MCV 101.6 H (84.0-98.0) fL MCH 33.0 (28.2-33.3) pg MCHC 32.5 (31.7-36.0) g/dL RDW 13.8 (11.2-14.1) % Plt Count 188 (150-350) K/uL Neut % (Auto) 67.1 (45.0-80.0) % Lymph % (Auto) 18.0 (10.0-50.0) % Bee % (Auto) 13.3 (2.0-14.0) % Eos % (Auto) 1.2 (0.0-5.0) % Baso % (Auto) 0.4 (0.0-2.0) % Neut # (Auto) 3.43 (1.40-7.00) K/uL Lymph # (Auto) 0.92 (0.50-3.50) K/uL Bee # (Auto) 0.68 (0.00-1.00) K/uL Eos # (Auto) 0.06 (0.00-0.50) K/uL Baso # (Auto) 0.02 (0.00-0.20) K/uL PT (9.8-11.7) SEC INR Sodium (136-145) mmol/L Potassium (3.5-5.1) mmol/L Chloride (98-107) mmol/L Carbon Dioxide (21.0-32.0) mmol/L BUN (7-18) mg/dL Creatinine (0.51-1.17) mg/dL Est Cr Clr Drug Dosing mL/min Estimated GFR (MDRD) mL/min Glucose (74-106) mg/dL POC Glucose 216 H 254 H* (65-110) mg/dl Calcium (8.5-10.1) mg/dL Total Bilirubin (0.2-1.0) mg/dL AST (15-37) U/L ALT (12-78) U/L Alkaline Phosphatase (46-116) IU/L C-Reactive Protein (<=0.9) mg/dL Total Protein (6.4-8.2) g/dL Albumin (3.4-5.0) g/dL Amylase (25-115) U/L Lipase (73-393) U/L 08/19/17 08/19/17 08/19/17 Range/Units 06:46 06:46 07:30 WBC (4.0-10.2) K/uL RBC (3.77-5.09) M/uL Hgb (11.7-15.5) g/dL Hct (34.0-46.0) % MCV (84.0-98.0) fL MCH (28.2-33.3) pg MCHC (31.7-36.0) g/dL RDW (11.2-14.1) % Plt Count (150-350) K/uL Neut % (Auto) (45.0-80.0) % Lymph % (Auto) (10.0-50.0) % Bee % (Auto) (2.0-14.0) % Eos % (Auto) (0.0-5.0) % Baso % (Auto) (0.0-2.0) % Neut # (Auto) (1.40-7.00) K/uL Lymph # (Auto) (0.50-3.50) K/uL Bee # (Auto) (0.00-1.00) K/uL Eos # (Auto) (0.00-0.50) K/uL Baso # (Auto) (0.00-0.20) K/uL PT 24.8 H D (9.8-11.7) SEC INR 2.3 Sodium 138 (136-145) mmol/L Potassium 3.7 (3.5-5.1) mmol/L Chloride 101 (98-107) mmol/L Carbon Dioxide 29.5 (21.0-32.0) mmol/L BUN 34 H (7-18) mg/dL Creatinine 2.65 H (0.51-1.17) mg/dL Est Cr Clr Drug Dosing 13.39 mL/min Estimated GFR (MDRD) 17 mL/min Glucose 214 H (74-106) mg/dL POC Glucose 195 H (65-110) mg/dl Calcium 8.0 L (8.5-10.1) mg/dL Total Bilirubin 0.4 (0.2-1.0) mg/dL AST 20 (15-37) U/L ALT 5 L (12-78) U/L Alkaline Phosphatase 152 H (46-116) IU/L C-Reactive Protein 1.8 H (<=0.9) mg/dL Total Protein 5.7 L (6.4-8.2) g/dL Albumin 2.7 L (3.4-5.0) g/dL Amylase 31 (25-115) U/L Lipase 85 (73-393) U/L Med Orders - Current: Current Medications Acetaminophen (Tylenol) 650 mg PO Q4H PRN PRN Reason: analgesia/fever Hydrocodone Bitart/Acetaminophen ([place] 325-5 Mg) 1 tab PO Q12H PRN PRN Reason: Pain Bisacodyl (Dulcolax) 10 mg RECTAL DAILY PRN PRN Reason: Constipation Calcium Carbonate/Glycine (Tums) 500 mg PO Q4H PRN PRN Reason: Dyspepsia Last Admin: 08/18/17 12:09 Dose: 500 mg Carbidopa/Levodopa (Sinemet 25-100 Mg) 3 tab PO BEDTIME [facility] Last Admin: 08/18/17 20:40 Dose: 3 tab Morphine Sulfate (Morphine) 2 mg IVPUSH Q4H PRN PRN Reason: Pain (severe 7-10) Last Admin: 08/17/17 20:30 Dose: 2 mg Ondansetron HCl (Zofran) 4 mg IVPUSH Q6H PRN PRN Reason: Nausea/Vomiting Last Admin: 08/18/17 12:09 Dose: 4 mg Pantoprazole Sodium (Protonix Iv) 40 mg IVPUSH DAILY [facility] Last Admin: 08/19/17 07:39 Dose: 40 mg Pramipexole Dihydrochloride (Mirapex) 3 mg PO BEDTIME [facility] Last Admin: 08/18/17 20:40 Dose: 3 mg Saliva Substitute (Jluis-Stir Oral [place]) 0 ml MUCMEM ASDIRECTED PRN PRN Reason: Dry Mouth Last Admin: 08/18/17 23:31 Dose: 1 spray Sodium Chloride (Saline Flush) 10 ml FLUSH ASDIRECTED PRN PRN Reason: Keep Vein Open Last Admin: 08/18/17 08:33 Dose: 10 ml Sodium Chloride (Saline Flush) 10 ml FLUSH Q12HR [facility] Last Admin: 08/19/17 07:39 Dose: 10 ml Temazepam (Restoril) 15 mg PO BEDTIME PRN PRN Reason: Insomnia Last Admin: 08/19/17 02:37 Dose: 15 mg Tramadol HCl (Ultram) 50 mg PO Q6H PRN PRN Reason: Pain Warfarin Sodium (Coumadin) 1.25 mg PO MO@08 [facility] Warfarin Sodium (Coumadin) 2.5 mg PO SUTUWETHFRSA@08 [facility] Last Admin: 08/19/17 07:39 Dose: 2.5 mg Discontinued Medications Al Hydroxide/Mg Hydroxide (Gi Cocktail) 30 ml PO ONETIME ONE Stop: 08/17/17 13:31 Last Admin: 08/17/17 13:42 Dose: 30 ml Bumetanide (Bumex) 1 mg PO TID [facility] Last Admin: 08/18/17 12:05 Dose: 1 mg Sodium Chloride (Normal Saline) 1,000 mls @ 250 mls/hr IV .BOLUS ONE Stop: 08/17/17 15:41 Last Admin: 08/17/17 12:44 Dose: 250 mls/hr Sodium Chloride (Normal Saline) 1,000 mls @ 50 mls/hr IV ASDIRECTED CADY Stop: 08/18/17 13:30 Last Admin: 08/17/17 17:12 Dose: 50 mls/hr Insulin Human NPH (Humulin N) 8 unit SUBCUT ONETIME ONE Stop: 08/18/17 20:01 Last Admin: 08/18/17 20:40 Dose: 8 units Levothyroxine Sodium (Synthroid) 100 mcg PO ACBREAKFAST [facility] Last Admin: 08/18/17 08:32 Dose: 100 mcg Levothyroxine Sodium (Levothyroxine) 25 mcg PO ACBREAKFAST [facility] Last Admin: 08/18/17 08:31 Dose: 25 mcg Morphine Sulfate (Morphine) 2 mg IVPUSH ONETIME ONE Stop: 08/17/17 14:09 Last Admin: 08/17/17 15:09 Dose: 2 mg Ondansetron HCl (Zofran) 4 mg IVPUSH ONETIME ONE Stop: 08/17/17 11:43 Last Admin: 08/17/17 12:44 Dose: 4 mg Pantoprazole Sodium (Protonix Iv) 40 mg IVPUSH ONETIME ONE Stop: 08/17/17 13:31 Last Admin: 08/17/17 13:42 Dose: 40 mg Warfarin Sodium (Coumadin) 5 mg PO ONETIME ONE Stop: 08/17/17 16:20 Last Admin: 08/17/17 17:18 Dose: 5 mg
[2017-08-20] MEDS ORDERED: Warfarin 2.5 MG Tab PO SCH (08:00)
== END 2017-08-19 16:40 | disposition home or self-care (01) ==
LOC: LL.ED 11:36 → UNDOADMOB 14:32 → LL.MS 14:32
PROVIDERS: ADMIT Emergency Medicine; ATTEND Family Medicine
DX: R10.10 Upper abdominal pain, unspecified (principal); I12.9 Hypertensive chronic kidney disease with stage 1 through stage 4 chronic kidney disease, or unspecified chronic kidney disease; E11.22 Type 2 diabetes mellitus with diabetic chronic kidney disease; N18.4 Chronic kidney disease, stage 4 (severe); Z99.2 Dependence on renal dialysis; Z79.4 Long term (current) use of insulin; J44.9 Chronic obstructive pulmonary disease, unspecified; I27.20 Pulmonary hypertension, unspecified; E03.9 Hypothyroidism, unspecified; D64.9 Anemia, unspecified; E04.2 Nontoxic multinodular goiter; E53.8 Deficiency of other specified B group vitamins; R79.1 Abnormal coagulation profile; K29.00 Acute gastritis without bleeding; R53.1 Weakness; Z79.01 Long term (current) use of anticoagulants; Z79.899 Other long term (current) drug therapy; Z88.1 Allergy status to other antibiotic agents; Z88.8 Allergy status to other drugs, medicaments and biological substances
CPT/HCPCS: 36415; 74019; 80053; 81001; 82150; 82962; 83690; 85025; 85610; 86140; 96361; 96374; 96375; 99285; A9270; C9113; J1815; J2270; J2405; J7030; J7050